=== PATIENT | male | born 1950 | race Caucasian/White ===

== ENCOUNTER 2017-02-02 05:48 | Day surgery (SDC) | payer MEDICARE, OTHER ==
[2017-02-01 15:44] LABS: HEMATOCRIT 35.4 % (42.0-54.0); HEMOGLOBIN 11.9 g/dL (13.5-17.5); MCH 31.4 pg (26.0-34.0); MCHC 33.6 g/dL (31.0-37.0); MCV 93.4 fL (80.0-100.0); MEAN PLATELET VOLUME 9.2 fL (7.4-10.4); RBC 3.79 10x6/uL (4.20-6.10); WBC 7.9 10x3/uL (4.8-10.8)
[2017-02-01 16:07] LABS: ANION GAP 14.3 mmol/L (8-16); CALCIUM 9.2 mg/dL (8.5-10.1); CREATININE - SERUM 1.1 mg/dL (0.6-1.3); POTASSIUM - SERUM 4.3 mmol/L (3.5-5.1)
[~2017-02-02] VITALS: Ht 172.7 cm; Wt 72.6 kg
[~2017-02-02 05:48] MED LIST: GLUCOPHAGE1000 MG PO; GLUCOTROL 5 MG T5 MG PO; NEURONTIN600 MG PO; NUCYNTA ER100 MG PO; ULTRAM50 MG PO; ZANAFLEX4 MG PO
[2017-02-02] MEDS ORDERED: ZOCOR20 MG PO (06:27)
[2017-02-02] MEDS ORDERED: BANOPHEN25 M1 PO (06:28)
[2017-02-02] MEDS ORDERED: ARTHRITIS PAIN RELIE (06:30)
[2017-02-02 06:32] VITALS: BP 107/70; Ht 172.7 cm; Wt 72.6 kg
[2017-02-02] MEDS ORDERED: DURICEF500 MG PO (09:41)
[2017-02-02] MEDS ORDERED: PERCOCET 5-3251 TAB PO (09:41)
--- NOTE | 2017-02-02 11:56 | NUR ---
1115 IV DC WITH CATHER TIP INTACT
--- NOTE | 2017-02-02 12:06 | OP ---
PATIENT NAME: INDIANA BAILEY MEDICAL RECORD: [id number] :51 LOCATION:[facility] ADMISSION DATE: SURGEON: DAYTON KRUEGER DO DATE OF OPERATION: 02/02/2017 PROCEDURE PERFORMED: Left thumb carpometacarpal arthroplasty. PREOPERATIVE DIAGNOSIS: Left thumb carpometacarpal arthritis, stage IV. POSTOPERATIVE DIAGNOSIS: Left thumb carpometacarpal arthritis, stage IV. INDICATIONS: Mr. Bailey is a left hand dominant male who presented to me some months ago with a complaint of bilateral thumb and hand pain. He had tried anti-inflammatories, which have not been working. He then took x-rays of the hand and noticed his CMC joints were completely worn out on both hands. The left one was worse than the right. We tried splinting for some months and this did not work. He did not tolerate that and he returned to me and said he wanted something done surgically to relieve the pain. I told him about the CMC arthroplasty and he consented to the procedure verbally in the office as well as the risks and benefits he was informed of. SURGEON: Dayton Krueger DO TOURNIQUET TIME: 62 minutes. ESTIMATED BLOOD LOSS: 50 mL. COMPLICATIONS: None. DESCRIPTION OF PROCEDURE: The patient was taken to the operative suite, given 2 grams of Ancef, laid in the supine position, given general anesthetic. The left arm was prepped and draped in sterile fashion with a tourniquet above the elbow. Once this was done, a timeout was performed, everyone was in agreement of the correct side, site and patient. After this had been done, the incision commenced after tourniquet was elevated to 250 mmHg. Incision commenced first over the CMC joint itself. Careful dissection was made down to the CMC joint and opening it peeling the capsule off both the thumb, metacarpal, and over the trapezium. Then, the incision was made just on the ulnar side of the second metacarpal. Once that was done, the K-wire was used to drive first from the second metacarpal to the thumb. I could not get a good spot with that, so switched taking it from the thumb through the second metacarpal. Once this was done, the suture was passed with a button on the end over the thumb and then a suture was cut through the 2 limbs that entered into the button. The button was tied down and then the trapezium was dissected out and taken out in bits. It was quite soft. A corkscrew was not able to be used, so we used an osteotome and rongeur. This was done very carefully. The trapezoid radioscaphoid joint was evaluated as well and no arthritis was noted there. At that point, the suture was then retightened after seeing somewhat of too much mobility with the suspension. It was retightened and seen to be in good position, confirmed on x-ray. The tourniquet was then let down at 62 minutes. The capsule was closed after coagulation was done with the bipolar. The capsule was closed with 0 Vicryl in a qgnihu-qd-mtssy fashion over the thumb and once this was done, the skin was closed with 3-0 Vicryl and then ran with 5-0 Monocryl on to the skin at that incision site. Incision site over the second metacarpal was closed with simple interrupted with 5-0 Monocryl. Steri-Strips were placed over each of the OPERATIVE REPORT [id number] [place] L wounds and Adaptic, 4x4, were placed over the wounds and then a Webril and a thumb spica splint were placed. The patient was awakened and taken to recovery in stable condition. TRANSINT:[id number] Voice Confirmation ID: [id number] DOCUMENT ID: [id number] DAYTON KRUEGER DO at 1206 CC: [id number] DICTATION DATE: 02/02/17 0939 CURTAIN FRAMER: 02/02/17 1025 [address] [place] [id number] [place] [id number]
== END 2017-02-02 11:20 | disposition home or self-care (01) ==
LOC: D.OPS 05:48 → D.PAN 09:00 → D.OPS 09:45
PROVIDERS: Anesthesiology
DX: M18.12 Unilateral primary osteoarthritis of first carpometacarpal joint, left hand (principal); E11.9 Type 2 diabetes mellitus without complications; Z01.812 Encounter for preprocedural laboratory examination

== ENCOUNTER → 2017-05-28 10:25 | Outpatient (CLI) | payer MEDICARE, OTHER ==
[2017-02-02 06:32] VITALS: BMI 24.3
[~2017-05-28 10:25] MED LIST changes: +ARTHRITIS PAIN RELIE; +BANOPHEN25 M1 PO; +DURICEF500 MG PO; +PERCOCET 5-3251 TAB PO; +ZOCOR20 MG PO
== END | disposition home or self-care (01) ==
LOC: D.CT 05-27 12:00 → D.RAD 10:25
DX: M47.812 Spondylosis without myelopathy or radiculopathy, cervical region (principal)

== ENCOUNTER 2017-10-12 05:20 | Day surgery (SDC) | payer MEDICARE, OTHER ==
[2017-10-11 14:48] LABS: HEMATOCRIT 35.3 % (42.0-54.0); HEMOGLOBIN 11.9 g/dL (13.5-17.5); MCHC 33.7 g/dL (31.0-37.0); MCV 91.9 fL (80.0-100.0); MEAN PLATELET VOLUME 8.9 fL (7.4-10.4); RBC 3.84 10x6/uL (4.20-6.10); WBC 5.5 10x3/uL (4.8-10.8)
[2017-10-11 14:56] LABS: CALCIUM 8.6 mg/dL (8.5-10.1); CREATININE - SERUM 1.1 mg/dL (0.6-1.3)
[~2017-10-12] VITALS: Ht 172.7 cm; Wt 77.1 kg
--- NOTE | ~2017-10-12 | OP ---
PATIENT NAME: INDIANA BAILEY MEDICAL RECORD: [id number] :51 LOCATION:[facility] ADMISSION DATE: SURGEON: NEETU KRUEGER DO DATE OF OPERATION: 10/12/2017 PROCEDURE PERFORMED: Right thumb CMC arthroplasty. PREOPERATIVE DIAGNOSIS: Right thumb CMC arthritis, end-stage. POSTOPERATIVE DIAGNOSIS: Right thumb CMC arthritis, end-stage. INDICATIONS: Mr. Bailey is a 67-year-old right-hand dominant male who presented to my office last year. He had bilateral thumb CMC arthritis and he tried activity modification as well as bracing and injections. This did not work. 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 He was informed of the risks and benefits of procedure including damage to the radial nerve, sensory nerve, bleeding, infection and he understood the risks. He then consented to the procedure. SURGEON: Neetu Krueger DO. DESCRIPTION OF THE PROCEDURE: The patient received a block preoperatively by anesthesia, was taken to the operative suite, laid in supine position. He had the right upper extremity prepped and draped in sterile fashion, tourniquet above the elbow under the drapes. A timeout was performed and everyone was in agreement with the correct side, site, and patient and procedure. Once this was done, an Esmarch was used to exsanguinate the right upper extremity. The incision was marked out over the dorsal aspect of the thumb to the radial styloid over the first dorsal compartment. Careful dissection was then made. Once the incision was made on the skin, careful dissection was made down to the capsular joint, retracting the first dorsal compartment tendons palmarly and then cleaning off the CMC joint. Once the thumb was cleared off and the trapezium was exposed, a second incision was made just on the ulnar side of the second metacarpal towards the base and careful dissection was made down clearing it off. The Hohmann was then put under the second metacarpal. Then, a K-wire was looped in, was ran from the base of the thumb and through the second metacarpal. This was noted to be in good position via fluoroscopy and then the FiberWire with the button was ran through the same spot. Then a button was used on the thumb side as well as the second metacarpal side and tied into place. X-ray was taken and seen to be in good position. The trapezium was then removed with somewhat difficulty due to the large spurs on it from the arthritis. Once this was removed, x-rays were then taken again and the thumb was repositioned as well as the tightness of the knots on the TightRope buttons. This was then tightened down to adequate position confirmed on fluoroscopy and the thumb range of motion was seen to be quite well with abduction, adduction, extension and circumduction. The tourniquet was then let down at 46 minutes. All bleeding was coagulated and the capsule was closed with the thumb with 2-0 Vicryl in a kbizwv-ld-alftf fashion and the skin was closed with 5-0 Monocryl in inverted interrupted fashion over that location as well as the second incision by the second metacarpal. Then Steri-Strips were placed over the wound. The hand was cleaned and placed with Adaptic, 4 x 4s, Webril, and a thumb spica splint was placed on the patient. He was awakened and taken to recovery in stable OPERATIVE REPORT [id number] INDIANA BAILEY condition. BLOOD LOSS: Minimal. COMPLICATIONS: None. TOURNIQUET TIME: 46 minutes. TRANSINT:[id number] Voice Confirmation ID: [id number] DOCUMENT ID: [id number] NEETU KRUEGER DO at 1604 CC: [id number] DICTATION DATE: 10/12/17913 NURSERY SCHOOL TEACHER: 10/12/17 1232 REG [facility] [address] [place] [address]
[~2017-10-12 05:20] MED LIST changes: +HYDROCHLOROTHIA25 MG PO; +HYDROCO/APAP TAB 10-; +ZOCOR40 MG PO; +ZOLOFT25 MG PO
[2017-10-12 06:41] VITALS: BP 142/83; Ht 172.7 cm; Wt 77.1 kg
[2017-10-12] MEDS ORDERED: PERCOCET 7.5/321 TAB PO (09:07)
[2017-10-12] MEDS ORDERED: DURICEF500 MG PO (09:07)
== END 2017-10-12 11:00 | disposition home or self-care (01) ==
LOC: D.OPS 05:20 → D.PAN 12:00
PROVIDERS: Anesthesiology
DX: M18.11 Unilateral primary osteoarthritis of first carpometacarpal joint, right hand (principal); Z01.812 Encounter for preprocedural laboratory examination

== ENCOUNTER 2017-10-26 06:45 | Day surgery (SDC) | payer MEDICARE, OTHER ==
[2017-10-25 14:39] LABS: HEMATOCRIT 33.9 % (42.0-54.0); HEMOGLOBIN 11.6 g/dL (13.5-17.5); MCH 31.1 pg (26.0-34.0); MCHC 34.2 g/dL (31.0-37.0); MCV 90.9 fL (80.0-100.0); MEAN PLATELET VOLUME 8.9 fL (7.4-10.4); RBC 3.73 10x6/uL (4.20-6.10); RDW 12.6 % (11.5-14.5); WBC 6.3 10x3/uL (4.8-10.8)
[2017-10-25 14:51] LABS: CALC OSMOLALITY 276 mosm/kg (275-300); CALCIUM 8.8 mg/dL (8.5-10.1); CHLORIDE - SERUM 99 mmol/L (98-107); GLUCOSE 154 mg/dL (74-106); POTASSIUM - SERUM 3.8 mmol/L (3.5-5.1); SODIUM 136 mmol/L (136-145); UREA NITROGEN 18 mg/dL (7-18); eGFR NON AFRICAN AMERICAN 79 mL/min (90-120)
[~2017-10-26] VITALS: Ht 172.7 cm; Wt 77.3 kg
--- NOTE | ~2017-10-26 | OP ---
PATIENT NAME: INDIANA BAILEY MEDICAL RECORD: [id number] :51 LOCATION:[facility] ADMISSION DATE: SURGEON: TANVIR VEGA MD DATE OF OPERATION: 10/26/2017 PREOPERATIVE DIAGNOSES: Osteophyte formation and disc herniation at C4-C5. POSTOPERATIVE DIAGNOSES: Osteophyte formation and disc herniation at C4-C5. PROCEDURE: Anterior cervical discectomy and fusion at C4-C5 with PEEK interbody cage, bone stem cell allograft [employer] midline anterior cervical plate and screws, removal of osteophytes. SURGEON: Tanvir Vega MD DESCRIPTION OF TECHNIQUE: After induction of general endotracheal anesthesia, the patient was positioned supine on the operating table. Neck was prepped and draped in the usual sterile fashion. Fluoroscopic x-ray and freer localized the C4-C5 interspace. A transverse skin incision was carried out from the midline to the sternocleidomastoid muscle. The platysma was divided with Bovie cautery. Using blunt and sharp dissection with Metzenbaum scissors, I proceeded in the avascular plane medial to the carotid sheath. The C4-C5 interspace was identified with fluoroscopic x-ray and a spinal needle. The longus colli muscles were elevated at the bodies of C4 and C5. Self-retaining retractors placed deep to the longus colli muscles. Milton distracting pins were placed in the bodies of C4 and C5. The disc space was incised with #11 blade and distraction. Tissue rongeurs and curettes were used to remove disc material from the disc space. The endplates were prepared using a curette, taking care to preserve a bony endplate. Osteophytes were drilled away posteriorly with Midas-Douglas drill and a microscope. The posterior longitudinal ligament was removed with Cloward rongeurs. The dura was decompressed well. Meticulous hemostasis was maintained throughout the wound. A PEEK interbody cage was placed in the disc space under distraction. Prior to this, the central portion of the PEEK interbody cage was filled with bone stem cells and allograft. A [employer] anterior cervical plate and screws was used to span the C4-C5 interspace. Locking cams were tightened down over the screw heads. Meticulous hemostasis was maintained throughout the wound. The wound was irrigated with copious amounts of Ancef irrigant solution. The platysma and subdermal layer closed with interrupted 3-0 Vicryl suture. The skin was reapproximated with Steri-Strips and benzoin. A sterile dressing was applied to the wound. The patient was awakened in good condition and taken to recovery. All counts were reported as correct. ESTIMATED BLOOD LOSS: Minimal. TRANSINT:[id number] Voice Confirmation ID: [id number] DOCUMENT ID: [id number] OPERATIVE REPORT [id number] INDIANA BAILEY JOHN MD at 1555 CC: [id number] DICTATION DATE: 11/08/17 0959 MANAGER FORMS: 11/08/17 1147 [facility] [place] 10/27/17 [place] [id number] [place] [address]
[~2017-10-26 06:45] MED LIST changes: +PERCOCET 7.5/321 TAB PO
[2017-10-26] MEDS ORDERED: TRAVATAN Z2.5 ML EACH EYE (07:40)
[2017-10-26 07:54] VITALS: BP 103/61; BMI 25.9
[2017-10-27 04:40] VITALS: BP 142/89; Ht 172.7 cm; Wt 77.3 kg
[2017-10-27 07:08] VITALS: BP 156/87
[2017-10-27 11:21] VITALS: BP 154/94
== END 2017-10-27 11:51 | disposition home or self-care (01) ==
LOC: D.M3 06:45 → D.OPS 06:45 → D.M3 20:27 → D.OPS 10-27 11:51
PROVIDERS: Anesthesiology
DX: M54.12 Radiculopathy, cervical region (principal); M25.78 Osteophyte, vertebrae

== ENCOUNTER 2018-11-25 08:01 | Day surgery (SDC) | payer MEDICARE, OTHER ==
[~2018-11-25] VITALS: Ht 172.7 cm; Wt 77.1 kg
[~2018-11-25 08:01] MED LIST changes: +LIPITOR20 MG PO; +LISINOPRIL10 MG PO; +OMEPRAZOLE40 MG PO; +TRAVATAN Z2.5 ML EACH EYE
[2018-11-25 08:30] LABS: HEMATOCRIT 35.4 % (42.0-54.0); HEMOGLOBIN 12.1 g/dL (13.5-17.5); MCH 31.1 pg (26.0-34.0); MCHC 34.2 g/dL (31.0-37.0); MEAN PLATELET VOLUME 9.2 fL (7.4-10.4); RBC 3.89 10x6/uL (4.20-6.10); RDW 14.4 % (11.5-14.5); WBC 5.4 10x3/uL (4.8-10.8)
[2018-11-25 08:38] LABS: CALCIUM 8.6 mg/dL (8.5-10.1); CARBON DIOXIDE 29.3 mmol/L (21.0-32.0); CREATININE - SERUM 1.2 mg/dL (0.6-1.3); POTASSIUM - SERUM 4.3 mmol/L (3.5-5.1)
[2018-11-25 08:57] VITALS: Ht 172.7 cm; Wt 77.1 kg
--- NOTE | 2018-11-25 09:15 | NUR ---
CALLED DR ZELAYA AT THIS TIME TO DISCUSS ELEVATED BP. DR ZELAYA GAVE ORDERS AT THIS TIME FOR 10MG HYDRALAZINE.
--- NOTE | 2018-11-25 09:41 | NUR ---
RECHECKED BP AFTER 15 MIN AFTER ADMINISTRATION OF HYDRALAZINE AND IT IS 163/84
[2018-11-25] MEDS ORDERED: ULTRAM50 MG PO (10:56)
--- NOTE | 2018-11-28 09:59 | OP ---
PATIENT NAME: INDIANA BAILEY MEDICAL RECORD: [id number] :51 LOCATION:[facility] ADMISSION DATE: SURGEON: DAYTON KRUEGER DO DATE OF OPERATION: 11/25/2018 PROCEDURE PERFORMED: Right thumb and index finger A1 ben release. PREOPERATIVE DIAGNOSIS: Trigger finger, right thumb and index finger. POSTOPERATIVE DIAGNOSIS: Trigger finger, right thumb and index finger. INDICATIONS: Mr. Bailey is a 68-year-old male who presented to the office with his index finger and his thumb locking. He said he had to often unlock it in the mornings and is very painful. He said he wanted something done, he was tired of it affecting his activities of daily living and was aware of the risks including infection, bleeding, damage to the digital nerves, need for further surgery, and continued pain. He was okay with that and signed the consent. SURGEON: Dayton Krueger DO DESCRIPTION OF PROCEDURE: The patient was taken to the operative suite, laid in supine position, given general anesthetic. The right upper extremity was then prepped and draped in sterile fashion. Timeout was performed, everyone was in agreement as to the correct side, site, patient and procedure. The patient received a gram of Ancef preoperatively. The tourniquet was then inflated after exsanguinating the right upper extremity with an Esmarch and was up for 19 minutes. Incision then began at the thumb right over the A1 ben of the thumb and careful dissection was made down to the A1 ben, ensuring that it was just the ben that we are releasing and this was released. The tendon was then pulled out through the incision, ensuring that it was a good release. The index finger was then addressed. An incision was made over the palmar crease and careful dissection was made down to the A1 ben. This was freed up just at the A1 ben and the A1 ben was released and again the tendon was brought out through the incision, ensuring that it was a good release and did not catch anymore. The tourniquet was then let down. The sites were injected with 0.25% Marcaine with epinephrine, approximately 3 mL in each, then closed with 4-0 Monocryl in a horizontal mattress fashion. Adaptic, 4 x 4's, Kerlix and Coban was lightly wrapped on the hand. He was awakened and taken to recovery in stable condition. BLOOD LOSS: Minimal. COMPLICATIONS: None. TRANSINT:[id number] Voice Confirmation ID: [id number] DOCUMENT ID: [id number] DAYTON KRUEGER DO at 0959 CC: [id number] DICTATION DATE: 11/25/18 1052 ANIMAL CARE GIVER: 11/25/18 1148 [facility] [place] 11/25/18 [place] [id number]
== END 2018-11-25 12:24 | disposition home or self-care (01) ==
LOC: D.OPS 08:01 → D.PAN 10:45 → D.OPS 12:24
PROVIDERS: Anesthesiology; ATTEND Orthopaedic Surgery
DX: M65.311 Trigger thumb, right thumb (principal); M65.321 Trigger finger, right index finger; Z01.812 Encounter for preprocedural laboratory examination

== ENCOUNTER → 2019-07-28 05:19 | Day surgery (SDC) | payer MEDICARE, OTHER ==
[2018-11-25 08:57] VITALS: Ht 172.7 cm; Wt 78.0 kg
[~2019-07-28] VITALS: Ht 172.7 cm; Wt 78.0 kg
[~2019-07-28 05:19] MED LIST changes: +EB-N5; +FLOMAX0.4 MG PO; +GABAPENTIN100 MG PO; +GLUCOPHAGE1000 MG; +OMEPRAZOLE20 M1 PO
[2019-07-28 06:13] LABS: HEMOGLOBIN 12.1 g/dL (13.5-17.5); MCH 30.9 pg (26.0-34.0); MCHC 32.7 g/dL (31.0-37.0); MCV 94.4 fL (80.0-100.0); MEAN PLATELET VOLUME 9.3 fL (7.4-10.4); RBC 3.92 10x6/uL (4.20-6.10); RDW 14.7 % (11.5-14.5); WBC 5.8 10x3/uL (4.8-10.8)
[2019-07-28 06:16] LABS: ANION GAP 12.9 mmol/L (8-16); CALCIUM 9.1 mg/dL (8.5-10.1); CARBON DIOXIDE 26.4 mmol/L (21.0-32.0); CREATININE - SERUM 1.2 mg/dL (0.6-1.3); POTASSIUM - SERUM 4.3 mmol/L (3.5-5.1)
--- NOTE | 2019-07-28 06:29 | NUR ---
PATIENT IS HERE FOR AN OUTPATIENT PROCEDURE. HE IS NOT SUICIDIAL AND ONLY HAD FLEETING THOUGHTS AT THE AGE OF 22. 1-800 NUMBER GIVEN TO PATIENT FOR FUTURE REFERENCE
--- NOTE | 2019-07-28 06:30 | NUR ---
1890 [facility] HEALTH ASSESSMENT NURSE IS HERE TO EVALUATE PATIENT.
--- NOTE | 2019-07-28 10:50 | NUR ---
0945 IV DC'D. CATHETER TIP INTACT. NO BLEEDING AT SITE. BANDAID APPLIED. PT STATES HE DOES NOT NEED A SLING AND THAT IF HE DOES, HE HAS 2 AT HOME. PT VOICES UNDERSTANDING OF DISCHARGE INSTRUCTIONS.
--- NOTE | 2019-07-29 08:22 | OP ---
PATIENT NAME: INDIANA BAILEY MEDICAL RECORD: [id number] :51 LOCATION:[facility] ADMISSION DATE: SURGEON: NEETU KRUEGER DO DATE OF OPERATION: 07/28/2019 PROCEDURE PERFORMED: Left endoscopic carpal tunnel release. PREOPERATIVE DIAGNOSIS: Left carpal tunnel syndrome. POSTOPERATIVE DIAGNOSIS: Left carpal tunnel syndrome. INDICATIONS: Mr. Bailey is a 68-year-old male who has had left carpal tunnel syndrome for quite some time. He finally got it tested indicating that he did indeed have a carpal tunnel syndrome at the left wrist. I informed him of the risks including continued pain and numbness and tingling, damage to median nerve, infection, bleeding and he was aware of all that and damage to the other structures in the area and he signed the consent. SURGEON: Neetu Krueger DO DESCRIPTION OF PROCEDURE: The patient was taken to the operative suite, laid in supine position, given a gram of Ancef preoperatively. The left upper extremity was then prepped and draped in sterile fashion after he was sedated and LMA was placed. A timeout was performed, everyone was in agreement with the correct side, site, patient and procedure. I then exsanguinated the left upper extremity with an Esmarch, tourniquet was inflated to 250 mmHg, it was up for 11 minutes. I then made an incision along the wrist crease, centered over the palmaris longus tendon and then with Ragnells I bluntly dissected down to the median nerve. I then released the forearm fascia from distal to proximal at the site and then entered the carpal tunnel with the dilators. I then put the sheath in protecting the median nerve underneath it. The camera was brought in and then the rasp and probe were used to inspect the transverse carpal ligament to ensure there was no transligamentous nerve branch. I did not see one or feel one. The blade was then brought in and raised up and transected, cut through the transverse carpal ligament. We then removed the sheath and the blade, and under direct loupe magnification and using a Ragnell and scissors spreading the remaining fibers of the left transverse carpal ligament, indicating good release. The tourniquet was then let down. I injected the site with 0.25% Marcaine with epinephrine 10 mL around the site, any bleeding was coagulated with the bipolar. The site was then closed by Shane Walker, certified surgical dietetic assistant with 5-0 Monocryl in inverted interrupted fashion. Steri-Strips, Adaptic, 4 x 4's, Kerlix, and a Coban was lightly wrapped on the wrist. He was then awakened and taken to recovery in stable condition. BLOOD LOSS: Minimal. COMPLICATIONS: None. TRANSINT:[id number] Voice Confirmation ID: [id number] DOCUMENT ID: [id number] OPERATIVE REPORT [id number] INDIANA BAILEY,NEETU Souza DO at 0822 CC: [id number] DICTATION DATE: 07/28/19 0834 UNIVERSITY TEACHER: 07/28/19 1429 [facility] 07/28/19 [place] [id number] [place] [address]
== END | disposition home or self-care (01) ==
LOC: D.OPS 05:19 → D.PAN 08-04 07:00
PROVIDERS: Anesthesiology; ATTEND Orthopaedic Surgery
DX: G56.02 Carpal tunnel syndrome, left upper limb (principal); E11.40 Type 2 diabetes mellitus with diabetic neuropathy, unspecified; Z79.84 Long term (current) use of oral hypoglycemic drugs; E78.2 Mixed hyperlipidemia; I10 Essential (primary) hypertension; K21.9 Gastro-esophageal reflux disease without esophagitis; G56.21 Lesion of ulnar nerve, right upper limb

== ENCOUNTER → 2019-11-23 12:29 | Outpatient (CLI) | payer MEDICARE, OTHER ==
[2019-07-28 06:39] VITALS: BMI 26.2
== END | disposition home or self-care (01) ==
LOC: D.MRI 12:29
PROVIDERS: ATTEND Clinical Nurse Specialist Family Health
DX: M79.642 Pain in left hand (principal)

== ENCOUNTER → 2020-07-02 07:37 | Outpatient (CLI) | payer MEDICARE, MEDICAID ==
[2019-07-28 06:39] VITALS: BMI 26.2
== END | disposition home or self-care (01) ==
LOC: D.US 07-01 07:25
PROVIDERS: ATTEND Nurse Practitioner
DX: R11.2 Nausea with vomiting, unspecified (principal)

== ENCOUNTER 2020-07-17 08:43 | Day surgery (SDC) | payer MEDICARE ==
[~2020-07-17] VITALS: Ht 172.7 cm; Wt 74.1 kg
[2020-07-17 09:11] LABS: ANION GAP 14.5 mmol/L (8-16); CALCIUM 8.9 mg/dL (8.5-10.1); CARBON DIOXIDE 23.2 mmol/L (21.0-32.0); CREATININE - SERUM 1.1 mg/dL (0.6-1.3); POTASSIUM - SERUM 4.7 mmol/L (3.5-5.1)
[2020-07-17 09:13] LABS: BASOPHILS 0.4 % (0-2); EOSINOPHILS 5.6 % (0-7); HEMOGLOBIN 12.4 g/dL (13.5-17.5); IMMATURE GRANULOCYTES 0.2 % (0-5); LYMPHOCYTES 19.4 % (15-50); MCH 31.4 pg (26.0-34.0); MCHC 33.5 g/dL (31.0-37.0); MCV 93.7 fL (80.0-100.0); MEAN PLATELET VOLUME 9.9 fL (7.4-10.4); MONOCYTES 9.7 % (2-11); NEUTROPHIL ABS# 3.33 10x3/uL (1.78-5.38); NEUTROPHILS 64.7 % (40-80); PLATELET COUNT 223 10x3/uL (130-400); RBC 3.95 10x6/uL (4.20-6.10); RDW 13.9 % (11.5-14.5); WBC 5.2 10x3/uL (4.8-10.8)
[2020-07-17 10:24] VITALS: BP 172/80; Ht 172.7 cm; Wt 74.1 kg
--- NOTE | 2020-07-17 15:07 | NUR ---
1445 IV REMOVED AND PRESSURE HELD. INSTRUCTIONS GIVEN
--- NOTE | 2020-07-18 16:39 | OP ---
PATIENT NAME: INDIANA BAILEY MEDICAL RECORD: [id number] :52 LOCATION:[facility] ADMISSION DATE: SURGEON: DONAL MCKAY MD DATE OF OPERATION: 07/17/2020 PREOPERATIVE DIAGNOSES: 1. Intractable nausea and vomiting. 2. Epigastric abdominal pain. 3. Right upper quadrant abdominal pain. 4. Gastroesophageal reflux. POSTOPERATIVE DIAGNOSES: 1. Intractable nausea and vomiting. 2. Epigastric abdominal pain. 3. Right upper quadrant abdominal pain. 4. Gastroesophageal reflux. 5. Schatzki's stricture. 6. 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 7. LA grade II distal esophagitis. PROCEDURE: 1. Esophagogastroduodenoscopy with antral and distal esophageal biopsies. 2. Esophageal dilation with mwlyabr-qrl-gtsfgmxg balloon to 58-Omani. SURGEON: Donal Mckay MD PIN DRAFTER OPERATOR: None. BLOOD LOSS: Minimal. ANESTHESIA: IV sedation. COMPLICATIONS: None. The risks, possible complications, and alternatives of the procedure were explained to the patient. He elects to proceed. The discussion specifically included, but was not limited to, bleeding requiring emergency reoperation, infection, endoscopic perforation. ENDOSCOPIC COURSE: The patient was conveyed to the endoscopy suite electively on 07/17/2020. IV sedation was induced by the anesthesia staff. A bite block was inserted. A gastroscope was inserted into the mouth. It was advanced easily into the hypopharynx. Esophagus was easily intubated as were the stomach and duodenum. Upon withdrawal, retroflexed and angulus views were obtained. Antral biopsies were obtained. I then withdrew into the cardia of the stomach. I advanced a ycydzjs-ioo-zkzxgzly balloon. I sequentially dilated the entire length of the esophagus to 58-Omani. The gastroscope and balloon dilator were then removed. I readvanced the gastroscope. There has been no evidence of false passage or perforation. Distal esophageal biopsies were obtained to rule out Najera's esophagus. I then withdrew the endoscope under direct vision. I did not find enough endoscopically to account for the patient's intractable nausea and vomiting as well as the abdominal pain. The abdominal ultrasound was negative for gallstones or cholecystitis. I would recommend that we proceed with a PIPIDA scan with ejection fraction. OPERATIVE REPORT [id number] INDIANA BAILEY TRANSINT:[id number] Voice Confirmation ID: [id number] DOCUMENT ID: [id number] DONAL MCKAY MD at 1639 CC: NEETU DENNY [id number] DICTATION DATE: 07/17/20 1359 LATHER APPRENTICE: 07/17/20 1550 [facility] 07/17/20 [place] [id number] [place] [id number]
== END 2020-07-17 15:00 | disposition home or self-care (01) ==
LOC: D.OPS 08:43
PROVIDERS: Anesthesiology; ATTEND Surgery
DX: R11.2 Nausea with vomiting, unspecified (principal); R10.13 Epigastric pain; R10.11 Right upper quadrant pain; K21.9 Gastro-esophageal reflux disease without esophagitis; K22.2 Esophageal obstruction; K20.90 Esophagitis, unspecified without bleeding; I10 Essential (primary) hypertension; F12.20 Cannabis dependence, uncomplicated; E11.40 Type 2 diabetes mellitus with diabetic neuropathy, unspecified